=== PATIENT | male | born 1960 | race Caucasian/White ===

== ENCOUNTER 2020-10-01 08:17 | Observation (INO) | payer OTHER ==
[~2020-10-01] VITALS: Ht 170.2 cm; Wt 75.3 kg
[2020-10-01 09:23] LABS: HEMOGLOBIN 16.8 gm/dl (14.0-17.5); RED BLOOD COUNT 5.3 M/UL (4.20-5.50); WHITE BLOOD COUNT 11.7 K/UL (4.5-11.0)
[2020-10-01 09:32] LABS: BUN/CREATININE RATIO 13 (0-10)
[2020-10-01] MEDS ORDERED: IBUPROFEN800 MG PO (12:02)
[2020-10-01] MEDS ORDERED: COMBIVENT RESPIM4 GM INH (12:02)
[2020-10-01] MEDS ORDERED: OMEPRAZOLE40 MG PO (12:03)
[2020-10-01] MEDS ORDERED: ZOLOFT50 MG PO (12:03)
[2020-10-01] MEDS ORDERED: COZAAR 50MG TAB50 MG PO (12:03)
[2020-10-01] MEDS ORDERED: REMERON 15 MG T15 MG PO (12:04)
[2020-10-01] MEDS ORDERED: SIMVASTATIN20 MG PO (12:04)
[2020-10-01] MEDS ORDERED: WIXELA 250-501 EACH INH (12:05)
[2020-10-01] MEDS ORDERED: ADULT LOW DOSE81 MG PO (12:22)
[2020-10-01] MEDS ORDERED: VENTOLIN HFA 66.7 GM INH (12:23)
[2020-10-02 02:29] LABS: HEMOGLOBIN 15.4 gm/dl (14.0-17.5); RED BLOOD COUNT 5.18 M/UL (4.20-5.50)
[2020-10-02 02:56] LABS: BUN/CREATININE RATIO 12 (0-10)
[2020-10-02] MEDS ORDERED: VITAMIN B-1100 M1 PO (08:56)
[2020-10-02] MEDS ORDERED: TAB-A-VITE TA400 MC1 PO (08:56)
[2020-10-02] MEDS ORDERED: ELIQUIS 5 MG TAB5 MG PO (08:56)
--- NOTE | 2020-10-02 10:55 | NUR ---
PATIENT ROOM AIR SAT IS 88%.
== END 2020-10-02 18:25 | disposition home or self-care (01) ==
LOC: ER1 08:17 → PROG CARE 11:51 → CDU 11:51 → PROG CARE 17:55
PROVIDERS: Physician Assistant; Physician Assistant Medical; ADMIT Internal Medicine
DX: I26.99 Other pulmonary embolism without acute cor pulmonale (principal); J44.9 Chronic obstructive pulmonary disease, unspecified; J96.20 Acute and chronic respiratory failure, unspecified whether with hypoxia or hypercapnia; M25.562 Pain in left knee; K21.9 Gastro-esophageal reflux disease without esophagitis; Z88.0 Allergy status to penicillin; F17.218 Nicotine dependence, cigarettes, with other nicotine-induced disorders; F10.10 Alcohol abuse, uncomplicated; Z79.01 Long term (current) use of anticoagulants; F32.9 Major depressive disorder, single episode, unspecified; F41.9 Anxiety disorder, unspecified; E44.0 Moderate protein-calorie malnutrition; Z20.822 Contact with and (suspected) exposure to COVID-19; M71.22 Synovial cyst of popliteal space [Baker], left knee; R91.8 Other nonspecific abnormal finding of lung field; I08.2 Rheumatic disorders of both aortic and tricuspid valves; E78.5 Hyperlipidemia, unspecified; I10 Essential (primary) hypertension
CPT/HCPCS: ECHO; 36415; 71045; 80053; 82550; 82553; 83735; 83874; 84100; 84484; 85025; 85027; 85379; 93005; 93306; 93970; 94664; 94760; 99285; G0378; J1650; Q9967; U0002

== ENCOUNTER → 2021-09-02 | Outpatient (CLI) | payer OTHER ==
[~2021-09-02] MED LIST: ADULT LOW DOSE81 MG PO; COMBIVENT RESPIM4 GM INH; COZAAR 50MG TAB50 MG PO; ELIQUIS 5 MG TAB5 MG PO; IBUPROFEN800 MG PO; OMEPRAZOLE40 MG PO; REMERON 15 MG T15 MG PO; SIMVASTATIN20 MG PO; TAB-A-VITE TA400 MC1 PO; VENTOLIN HFA 66.7 GM INH; VITAMIN B-1100 M1 PO; WIXELA 250-501 EACH INH; ZOLOFT50 MG PO
== END ==
LOC: HEART 5 10:37
DX: J44.9 Chronic obstructive pulmonary disease, unspecified (principal)
CPT/HCPCS: 94060; 94729